=== PATIENT | female | born 1990 | race Caucasian/White ===

== ENCOUNTER → 2020-07-10 15:41 | Outpatient (CLI) | payer OTHER, MEDICAID, SELFPAY ==
[2020-07-10] MEDS: COVID-19 VACC, Ad26(JANSSEN)/PF 0.5 ML IM (15:54)
== END ==
PROVIDERS: Visit Provider Internal Medicine
DX: Z23 Encounter for immunization (principal)
CPT/HCPCS: 0031A; 91303